=== PATIENT | female | born 1985 | race Two or more races ===

== ENCOUNTER 2018-02-07 15:59 | Emergency (ER) | payer MEDICAID ==
[~2018-02-07] VITALS: Ht 165.1 cm; Wt 68.0 kg
[~2018-02-07 15:59] MED LIST: AMOXICILLIN500 M1 PO; IBUPROFEN600 MG ORAL; NKM
[2018-02-07 16:05] VITALS: BP 113/66
[2018-02-07] MEDS ORDERED: OFLOXACIN5 ML OT (16:37)
[2018-02-07] MEDS ORDERED: ACETAMINOPHEN-1 EAC1 ORAL (16:37)
[2018-02-07] MEDS ORDERED: AUGMENTIN 875-1 EAC1 ORAL (16:37)
[2018-02-07 16:55] VITALS: BP 113/66
--- NOTE | 2018-02-07 17:56 | Emergency Room Report ---
History of Present Illness General Chief Complaint: Earache Source: Patient Present Illness HPI 32-year-old female presents ED complaining of left ear pain 5 days. Pain is throbbing, 10 out of 10, nonradiating. Fevers or chills. Denies cough. States she was seen by her PMD a few days ago and was prescribed antibiotic ear drops but states it is not helping. No other aggravating relieving factors. Denies any other associated symptoms Allergies: Coded Allergies: No Known Allergies (Unverified , 10/15/13) Patient History Past Medical History: none Past Surgical History: none Pertinent Family History: none Social History: Denies: smoking, alcohol use, drug use Last Menstrual Period: last month Now: No Immunizations: UTD Reviewed Nursing Documentation: PMH: Agreed; PSxH: Agreed Nursing Documentation-PMH Past Medical History: No Stated History Review of Systems All Other Systems: negative except mentioned in HPI Physical Exam Vital Signs Date Time Temp Pulse Resp B/P (MAP) Pulse Ox O2 Delivery O2 Flow Rate FiO2 02/07/18 16:01 98.7 74 18 113/66 97 Room Air 98.8 Sp02 EP Interpretation: reviewed, normal General Appearance: no apparent distress, alert, GCS 15, non-toxic Head: normocephalic Eyes: bilateral eye normal inspection, bilateral eye PERRL ENT: hearing grossly normal, normal pharynx, no angioedema, normal voice, other - L ear canal erythematous/swollen/tender. unable to visualize TM Neck: full range of motion, supple/symm/no masses Respiratory: normal inspection Cardiovascular #1: normal inspection Gastrointestinal: normal inspection Rectal: deferred Genitourinary: no CVA tenderness Musculoskeletal: normal inspection Neurologic: alert, oriented x3, responsive, motor strength/tone normal, sensory intact, speech normal Psychiatric: normal inspection Skin: normal inspection Medical Decision Making Diagnostic Impression: Primary Impression: Chronic otitis externa Qualified Codes: H60.62 - Unspecified chronic otitis externa, left ear ER Course Hospital Course 32-year-old F presents to ED with pain L ear Differential diagnoses include: TM perforation, otitis externa, otitis media Clinical course Patient placed on stretcher. After initial history, physical exam reveals a female in no acute distress. Left ear canal swollen and erythematous. Unable to visualize TM. Very tender on exam Consistent with otitis externa. Patient had been already prescribed Cipro-dex drops without improvement in symptoms Given that, we will change to Ocuflox and prescribed oral antibiotics as well. Explained to the patient that if symptoms do not resolve she needs to follow-up with ENT as outpatient Diagnosis - chronic otitis externa Stable and discharged to home with Rx ofloxacin otic, Augmentin, Tylenol 3. Followup with PMD/ENT. Return to ED if symptoms recur or worsen Last Vital Signs Date Time Temp Pulse Resp B/P (MAP) Pulse Ox O2 Delivery O2 Flow Rate FiO2 02/07/18 16:55 98.8 74 18 113/66 97 Room Air 98.8 Status: improved Disposition: HOME, SELF-CARE Condition: Stable Scripts Acetaminophen With Codeine (T#3) (TYLENOL #3 TAB*) Y Tab 1 TAB ORAL Q8H PRN for For Pain, #20 TAB Prov: Vazquez Lopez MD 02/07/18 Amoxicillin/Potassium Clav 875-125* (AUGMENTIN 875-125 TABLET*) 1 Each Tablet 1 TAB ORAL TWICE A DAY for 10 Days, #20 TAB Prov: Vazquez Lopez MD 02/07/18 Ofloxacin (OFLOXACIN) 5 Ml Drops 10 DROP OT BID for 10 Days, ML Prov: Vazquez Lopez MD 02/07/18 Patient Instructions: Otitis Externa, [id number] Vazquez Lopez MD Feb 07, 2018 17:56
== END 2018-02-07 16:55 | disposition home or self-care (01) ==
LOC: EMR 16:34
DX: H60.62 Unspecified chronic otitis externa, left ear (principal)
CPT/HCPCS: 99283

== ENCOUNTER 2019-07-03 13:09 | Emergency (ER) | payer MEDICAID ==
[~2019-07-03] VITALS: Ht 165.1 cm; Wt 72.6 kg
[~2019-07-03 13:09] MED LIST changes: +ACETAMINOPHEN-1 EAC1 ORAL; +AUGMENTIN 875-1 EAC1 ORAL; +OFLOXACIN5 ML OT
[2019-07-03 13:16] VITALS: BP 128/79
--- NOTE | 2019-07-03 13:22 | NUR ---
ED Nurse Note: PT FROM HOME CAME IN DUE TO PAINFUL COUGHING WITH PHLEGM, CONGESTION, FEVER AND CHILLS 5 DAYS. DENIES N/V. AAO X4,AMBULATORY WITH NON LABORED BREATHING.
[2019-07-03] MEDS: Albuterol/Ipratropium 3ml neb HHN SCH ×4 (13:45→14:12)
[2019-07-03] MEDS ORDERED: Lidocaine 1% MPF 10mg/ml 5ml INJ ONE (13:45)
--- NOTE | 2019-07-03 14:22 | Emergency Room Report ---
History of Present Illness General Chief Complaint: Upper Respiratory Illness Source: Patient Present Illness HPI 33-year-old female with no significant past medical history here complaining of 1 week of cough and congestion and wheezing. Complains of shortness of breath today, denying fever and chills sore throat at this time. Complains of congestion. Has not taken medication for symptom relief. Appears to be wheezing and minor crackles noted on the bilateral lower lobes. Denies abdominal pain, nausea vomiting, tobacco smoke, marijuana use, alcohol intake. Denies any urinary symptoms. Reports that patient just finished her menstruation and is regular. Denies pleuritic chest pain, calf tenderness. Allergies: Coded Allergies: No Known Allergies (Unverified , 10/15/13) Patient History Past Medical History: see triage record Past Surgical History: unable to obtain Pertinent Family History: none Last Menstrual Period: 06/09/2019 Now: No Immunizations: UTD Reviewed Nursing Documentation: PMH: Agreed; PSxH: Agreed Nursing Documentation-PMH Past Medical History: No Stated History Review of Systems All Other Systems: negative except mentioned in HPI Physical Exam Vital Signs Date Time Temp Pulse Resp B/P (MAP) Pulse Ox O2 Delivery O2 Flow Rate FiO2 07/03/19 13:16 98.1 82 16 128/79 96 Room Air 07/03/19 13:46 21 Sp02 EP Interpretation: reviewed, normal General Appearance: no apparent distress, alert, GCS 15, non-toxic Head: normocephalic, atraumatic Eyes: bilateral eye normal inspection, bilateral eye PERRL ENT: hearing grossly normal, normal pharynx, no angioedema, normal voice Neck: full range of motion, supple, thyroid normal, supple/symm/no masses Respiratory: chest non-tender, no rhonchi, no respiratory distress, no retraction, no accessory muscle use, crackles - Right lower lobe, speaking full sentences, wheezing Cardiovascular #1: regular rate, rhythm, no edema, no murmur Gastrointestinal: non tender, soft Genitourinary: no CVA tenderness Musculoskeletal: back normal, normal range of motion, no calf tenderness, gait/ station normal, non-tender Neurologic: alert, motor strength/tone normal, oriented x3, sensory intact, responsive, speech normal Psychiatric: judgement/insight normal, memory normal, mood/affect normal, no suicidal/homicidal ideation Skin: no rash Lymphatic: no adenopathy Medical Decision Making PA Attestation All my diagnosis and treatment plans were reviewed ad discussed with my supervising physician Dr. Lopez Diagnostic Impression: Primary Impression: Atypical pneumonia ER Course 33-year-old female with no significant past medical history here complaining of 1 week of cough and congestion and wheezing. Complains of shortness of breath today, denying fever and chills sore throat at this time. Complains of congestion. Has not taken medication for symptom relief. Appears to be wheezing and minor crackles noted on the bilateral lower lobes. Denies abdominal pain, nausea vomiting, tobacco smoke, marijuana use, alcohol intake. Denies any urinary symptoms. Reports that patient just finished her menstruation and is regular. Denies pleuritic chest pain, calf tenderness. Ddx considered but are not limited to: Atypical pneumonia, bronchitis, PNA, URI viral, bacterial bronchitis Vital signs: are WNL, pt. is afebrile H&PE are most consistent with: Atypical pneumonia ORDERS: Chest x-ray, azithromycin, Phenergan, prednisone, albuterol inhaler ED INTERVENTIONS: Prednisone, 3 treatments of albuterol ipratropium nebulizer Rocephin DISCHARGE: At this time pt. is stable for d/c to home. Will provide printed patient care instructions, and any necessary prescriptions. Care plan and follow up instructions have been discussed with the patient prior to discharge. Patient to follow-up with primary care provider, treated prophylactically for possible pneumonia as correlated clinically due to auscultation of crackles. Patient to follow-up with primary care physician if worsening symptoms return to the emergency room. Chest X-Ray Diagnostic Results Chest X-Ray Diagnostic Results : Chest X-Ray Ordered: Yes # of Views/Limited/Complete: 1 View Indication: Shortness of Breath EP Interpretation: Yes LINA Xray: Interpretation reviewed, by supervising MD, and agrees with findings. Interpretation: no consolidation, no effusion, no pneumothorax Impression: No acute disease Electronically Signed by: Patrick Padilla PA-C Last Vital Signs Date Time Temp Pulse Resp B/P (MAP) Pulse Ox O2 Delivery O2 Flow Rate FiO2 07/03/19 14:01 70 18 100 Room Air 21 67 18 100 07/03/19 13:16 98.1 128/79 (95) Disposition: HOME, SELF-CARE Condition: Stable Scripts Promethazine Hcl (PROMETHAZINE HCL*) 6.25 Mg/5 Ml Syrup 5 ML ORAL Q8H, #120 ML 0 Refills Prov: Patrick Maradiaga 07/03/19 Albuterol Sulfate (VENTOLIN HFA) 18 Gm Hfa.aer.ad 2 PUFFS INH EVERY 6 HOURS, #18 GM 0 Refills Prov: Patrick Maradiaga 07/03/19 Prednisone* (PREDNISONE*) 20 Mg Tablet 40 MG ORAL DAILY for 5 Days, #10 TAB Prov: Patrick Maradiaga 07/03/19 Azithromycin* (ZITHROMAX*) 250 Mg Tablet 250 MG ORAL DAILY, #6 TAB 0 Refills Take two tables once daily for 1 day, then one tablet once daily for 4 days. Prov: Patrick Maradiaga 07/03/19 Patient Instructions: Upper Respiratory Infection, Adult Additional Instructions: Take medication as directed, follow-up with your primary care provider, if worsening symptoms return to the emergency room Patrick Maradiaga Jul 03, 2019 14:22
[2019-07-03] MEDS ORDERED: VENTOLIN HFA18 GM INH (14:24)
[2019-07-03] MEDS ORDERED: PREDNISONE20 MG ORAL (14:24)
[2019-07-03] MEDS ORDERED: PROMETHAZI6.25 MG/1 ORAL (14:24)
[2019-07-03] MEDS ORDERED: ZITHROMAX250 MG ORAL (14:24)
--- NOTE | 2019-07-03 14:34 | NUR ---
ER DISCHARGE NOTE: Patient is cleared to be discharged per PA, pt is aox4, on room air, with stable vital signs. pt was given dc and prescription instructions, pt was able to verbalize understanding, pt id band removed. pt is able to ambulate with steady gait. pt took all belongings.
--- NOTE | 2019-07-03 15:05 | Diagnostic Imaging Report ---
Indication: Dyspnea Comparison: None A single view chest radiograph was obtained. Findings: Cardiomediastinal appearance is within normal limits for age. The lungs are clear. Pulmonary vascularity is appropriate. The diaphragmatic contour is smooth and costophrenic angles are sharp. No pleural effusions are identified. The bones are unremarkable. Impression: No acute findings
== END 2019-07-03 14:35 | disposition home or self-care (01) ==
LOC: EMR 14:35
DX: J18.9 Pneumonia, unspecified organism (principal)
CPT/HCPCS: 71045; 96372; 96374; J0696; J7512; Z7502; 99284; J7620